=== PATIENT | male | born 1935 | race Caucasian/White ===

== ENCOUNTER 2018-03-18 16:02 | Emergency (ER) | payer OTHER ==
[~2018-03-18] VITALS: Ht 180.3 cm; Wt 93.0 kg
== END 2018-03-18 17:27 | disposition home or self-care (01) ==
LOC: ER 16:02
DX: S00.03XA Contusion of scalp, initial encounter (principal); W01.0XXA Fall on same level from slipping, tripping and stumbling without subsequent striking against object, initial encounter; Z87.891 Personal history of nicotine dependence
CPT/HCPCS: 70450; 72125; 90471; 90714; 99284-25

== ENCOUNTER 2024-08-18 17:28 | Emergency (ER) | payer MEDICARE ==
[~2024-08-18] VITALS: Ht 177.8 cm; Wt 87.5 kg
[2024-08-18] MEDS ORDERED: Morphine Sulfate 4 MG/1 ML Injection IV ONE ×2 (20:40→21:15)
[2024-08-18 20:49] LABS: BASOPHILS ABSOLUTE AUTO 0.07 K/mm3 (0.00-0.23); BASOPHILS PERCENT AUTO 1 % (0-2); EOSINOPHILS ABSOLUTE AUTO 0.21 K/mm3 (0.00-0.68); EOSINOPHILS PERCENT AUTO 2 % (0-6); Hematocrit 39.4 % (37.0-53.0); Hemoglobin 12.8 g/dL (13.5-17.5); IMMATURE GRAN ABSOLUTE AUTO 0.06 K/mm3 (0.00-0.10); IMMATURE GRAN PERCENT AUTO 1 % (0-1); LYMPHOCYTES ABSOLUTE AUTO 1.18 K/mm3 (0.84-5.20); LYMPHOCYTES PERCENT AUTO 9 % (21-46); MONOCYTES ABSOLUTE AUTO 0.77 K/mm3 (0.16-1.47); MONOCYTES PERCENT AUTO 6 % (4-13); Mean Corpuscular HGB 29.1 pg (26.0-34.0); Mean Corpuscular HGB Conc 32.5 g/dL (31.5-36.5); Mean Corpuscular Volume 90 fL (80-100); NEUTROPHILS ABSOLUTE AUTO 10.68 K/mm3 (1.96-9.15); NEUTROPHILS PERCENT AUTO 82 % (41-73); Platelet Count 190 K/mm3 (150-400); RDW Coefficient Variation 12.7 % (11.7-14.2); RDW Standard Deviation 41.5 fL (35.1-46.3); White Blood Cell Count 12.97 K/mm3 (4.00-11.30)
[2024-08-18 20:58] LABS: International Normalized Ratio 1.13; Prothrombin Time Results 12.3 Sec (9.7-11.5)
[2024-08-18 21:07] LABS: Albumin, Blood 3.4 g/dL (3.4-5.0); Albumin/Globulin Ratio 0.9 (0.8-1.8); Bilirubin, Total 0.7 mg/dL (0.1-1.0); Bun/Creatinine Ratio 18.3 (12.0-20.0); Calcium, Blood 8.5 mg/dL (8.5-10.1); Creatinine, Blood 0.93 mg/dL (0.60-1.20); Globulin, Blood 3.7 g/dL (2.2-4.0); Potassium, Blood 4.2 mmol/L (3.5-5.5); Total Protein, Blood 7.1 g/dL (6.4-8.2)
[2024-08-18 23:00] VITALS: BP 168/77
[2024-08-19] MEDS ORDERED: Morphine Sulfate 4 MG/1 ML Injection IV ONE (00:05)
== END 2024-08-19 00:08 | disposition short-term general hospital (02) ==
LOC: ER 17:28
PROVIDERS: Student in an Organized Health Care Education/Training Program
DX: S72.032A Displaced midcervical fracture of left femur, initial encounter for closed fracture (principal); S82.002A Unspecified fracture of left patella, initial encounter for closed fracture; W18.30XA Fall on same level, unspecified, initial encounter; Z87.891 Personal history of nicotine dependence
CPT/HCPCS: 72170; 73552; 73562-LT; 80053; 85025; 85610; 85730; 96374; 96376; 99284-25; J2270

== ENCOUNTER 2024-11-08 17:25 | Inpatient (IN) | payer OTHER ==
[~2024-11-08] VITALS: Ht 175.3 cm; Wt 84.6 kg
[2024-11-08 17:55] LABS: BASOPHILS ABSOLUTE AUTO 0.14 K/mm3 (0.00-0.23); BASOPHILS PERCENT AUTO 1 % (0-2); EOSINOPHILS ABSOLUTE AUTO 1.55 K/mm3 (0.00-0.68); EOSINOPHILS PERCENT AUTO 7 % (0-6); Hematocrit 30.2 % (37.0-53.0); Hemoglobin 9.6 g/dL (13.5-17.5); IMMATURE GRAN ABSOLUTE AUTO 0.16 K/mm3 (0.00-0.10); IMMATURE GRAN PERCENT AUTO 1 % (0-1); LYMPHOCYTES ABSOLUTE AUTO 3.18 K/mm3 (0.84-5.20); LYMPHOCYTES PERCENT AUTO 15 % (21-46); MONOCYTES ABSOLUTE AUTO 1.64 K/mm3 (0.16-1.47); MONOCYTES PERCENT AUTO 8 % (4-13); Mean Corpuscular HGB Conc 31.8 g/dL (31.5-36.5); Mean Corpuscular Volume 81 fL (80-100); NEUTROPHILS ABSOLUTE AUTO 14.84 K/mm3 (1.96-9.15); NEUTROPHILS PERCENT AUTO 69 % (41-73); NRBC ABSOLUTE 0.00 K/mm3 (0.00-0.02); NRBC Auto 0.0 /100 WBC (0.0-0.2); Platelet Count 425 K/mm3 (150-400); RDW Coefficient Variation 14.0 % (11.7-14.2); RDW Standard Deviation 41.1 fL (35.1-46.3)
[2024-11-08 18:21] LABS: Alanine Aminotransfer (ALT/SGP 10.0 U/L (12-78); Albumin, Blood 2.8 g/dL (3.4-5.0); Albumin/Globulin Ratio 0.6 (0.8-1.8); Anion Gap 12.0 mmol/L (3-11); Aspartate Aminotrans (AST/SGOT 12.0 U/L (12-37); Bilirubin, Total 1.1 mg/dL (0.1-1.0); Blood Urea Nitrogen 31.0 mg/dL (8-24); CO2, Blood 22.0 mmol/L (21-32); Calcium, Blood 8.5 mg/dL (8.5-10.1); Chloride, Blood 105.0 mmol/L (98-108); Creatinine, Blood 1.75 mg/dL (0.60-1.20); Globulin, Blood 4.7 g/dL (2.2-4.0); Glucose, Blood 145.0 mg/dL (70-99); Potassium, Blood 4.7 mmol/L (3.5-5.5); Sodium, Blood 134.0 mmol/L (136-145); Total Protein, Blood 7.5 g/dL (6.4-8.2)
[2024-11-08] MEDS ORDERED: Piperacillin/Tazobactam Sod 3.375 GM in NS 100 ML IV ONE (20:00)
[2024-11-08] MEDS ORDERED: FentaNYL Citrate 50 MCG/ML 2 ML Injection IV PRN (20:40)
[2024-11-08] MEDS ORDERED: Ondansetron HCl 2 MG / ML 2ML Vial IV PRN (20:40)
[2024-11-08] MEDS ORDERED: NS 1,000 ML IV ONE (20:47)
[2024-11-08] MEDS ORDERED: NS 1,000 ML IV SCH (21:00)
[2024-11-08] MEDS ORDERED: IBUP600 PO (22:23)
[2024-11-08] MEDS ORDERED: MIRALAX17 GM PO (22:24)
[2024-11-08 22:48] VITALS: BP 124/59
--- NOTE | 2024-11-08 23:04 | NUR ---
2300- PT RESP. RATE IS 28-30 BPM. PT DENIES SOB. PT LS DIM IN BASES. NO CRACKLES HEARD. PROVIDER NADIRA CALLED AND ORDERED A REPEAT LATIC ACID AND VBG DRAW.
[2024-11-08 23:36] LABS: pH Blood Venous 7.37 (7.34-7.37)
[2024-11-09 00:02] VITALS: BP 97/85
[2024-11-09 04:25] VITALS: BP 119/66
[2024-11-09 04:52] LABS: BASOPHILS ABSOLUTE AUTO 0.10 K/mm3 (0.00-0.23); BASOPHILS PERCENT AUTO 1 % (0-2); EOSINOPHILS ABSOLUTE AUTO 1.62 K/mm3 (0.00-0.68); EOSINOPHILS PERCENT AUTO 9 % (0-6); Hematocrit 28.9 % (37.0-53.0); Hemoglobin 8.9 g/dL (13.5-17.5); IMMATURE GRAN ABSOLUTE AUTO 0.10 K/mm3 (0.00-0.10); IMMATURE GRAN PERCENT AUTO 1 % (0-1); LYMPHOCYTES ABSOLUTE AUTO 2.96 K/mm3 (0.84-5.20); LYMPHOCYTES PERCENT AUTO 16 % (21-46); MONOCYTES ABSOLUTE AUTO 1.56 K/mm3 (0.16-1.47); MONOCYTES PERCENT AUTO 9 % (4-13); Mean Corpuscular HGB Conc 30.8 g/dL (31.5-36.5); Mean Corpuscular Volume 83 fL (80-100); NEUTROPHILS ABSOLUTE AUTO 12.07 K/mm3 (1.96-9.15); NEUTROPHILS PERCENT AUTO 66 % (41-73); NRBC ABSOLUTE 0.00 K/mm3 (0.00-0.02); NRBC Auto 0.0 /100 WBC (0.0-0.2); Platelet Count 380 K/mm3 (150-400); RDW Coefficient Variation 14.1 % (11.7-14.2); RDW Standard Deviation 42.5 fL (35.1-46.3)
--- NOTE | 2024-11-09 05:02 | NUR ---
NOC SUMMARY- PT ARRIVED TO ROOM IN NO DISTRESS. PT HAS BEEN NPO. PT HAS DENIED ANY SIGNIFICANT PAIN. PT WAS FOUND TO HAVE RESP RATE 28-30. PROVIDER CALLED AND NADIRA ORDERED VBG AND LACTIC ACID. RESULTS UNREMARKABLE. PT DENIED SOB . PT STATES HE HAS CHRONIC BLE EDEMA. PT DENIES HX OF CHF. PT VOIDING AND AMBULATING c FWW. NO OTHER ISSUES NOTED. CALL LIGHT IN REACH AND BED ALARM ON FOR SAFETY.
[2024-11-09 05:04] LABS: Anion Gap 10.0 mmol/L (3-11); Blood Urea Nitrogen 33.0 mg/dL (8-24); CO2, Blood 23.0 mmol/L (21-32); Calcium, Blood 7.9 mg/dL (8.5-10.1); Chloride, Blood 107.0 mmol/L (98-108); Creatinine, Blood 1.53 mg/dL (0.60-1.20); Glucose, Blood 113.0 mg/dL (70-99); Magnesium, Blood 2.2 mg/dL (1.6-2.4); Potassium, Blood 4.3 mmol/L (3.5-5.5); Sodium, Blood 136.0 mmol/L (136-145)
[2024-11-09 07:28] VITALS: BP 107/55
[2024-11-09] MEDS ORDERED: Piperacillin/Tazobactam Sod 2.25 GM in NS 50 ML IV SCH (08:00)
[2024-11-09 11:57] VITALS: BP 113/49
[2024-11-09 14:53] VITALS: BP 107/49
--- NOTE | 2024-11-09 17:09 | NUR ---
SUMMARY PT AXO4. NPO UNTIL DR JAVIER ASSESSED PT - PT NOW ON CL DIET - TOLERATING WELL. PLAN TO REASSESS SURGICAL STATUS TUESDAY. PT HAVING LIQUID BROWN BM'S MULTIPLE TIMES THIS SHIFT. VOIDING WELL. AMBULATING WELL WITH SBA GB FWW. RECEIVING IV FLUIDS/ABX. HEARING AIDES AT BEDSIDE- PT VERY [place] W/O THEM. FAMILY AT BEDSIDE WITH RESIDENT VISITS AND DR JAVIER VISIT. BED ALARM ON. PT USING CALL LIGHT APPROPRIATELY. RESTING OFF AND ON. PT HAS DENIED NEED FOR PAIN MEDS - ABD PAIN PRONOUNCED WITH PALPATION BUT MINIMNAL W/O.
[2024-11-09 19:24] VITALS: BP 119/55
--- NOTE | 2024-11-09 20:34 | NUR ---
CALL TO PROVIDER PT REQUESTING PO PAIN MEDICATION. ORDERS OBTAINED.
--- NOTE | 2024-11-09 23:46 | NUR ---
RN TO ROOM TO ROUND; PT ASLEEP WITH EQUAL AND UNLABORED BREATHING. CALL LIGHT WITHIN REACH.
--- NOTE | 2024-11-10 02:48 | NUR ---
RN TO ROOM TO ROUND; PT SLEEPING WITH EQUAL AND UNLABORED BREATHING. CALL LIGHT WITHIN REACH.
--- NOTE | 2024-11-10 04:12 | NUR ---
SHIFT SUMMARY NO ACUTE CHANGES DURING SHIFT. PT HARD OF HEARING BUT IS ABLE TO COMMUNICATE NEEDS. PT AMBULATES TO RESTROOM WITH FWW AND GAIT BELT. PT WEARING ATTENDS FOR STOOL URGENCY.
[2024-11-10 04:18] VITALS: BP 116/57
[2024-11-10 05:27] LABS: BASOPHILS ABSOLUTE AUTO 0.12 K/mm3 (0.00-0.23); BASOPHILS PERCENT AUTO 1 % (0-2); EOSINOPHILS ABSOLUTE AUTO 1.81 K/mm3 (0.00-0.68); EOSINOPHILS PERCENT AUTO 11 % (0-6); Hematocrit 27.9 % (37.0-53.0); Hemoglobin 8.4 g/dL (13.5-17.5); IMMATURE GRAN ABSOLUTE AUTO 0.15 K/mm3 (0.00-0.10); IMMATURE GRAN PERCENT AUTO 1 % (0-1); LYMPHOCYTES ABSOLUTE AUTO 2.52 K/mm3 (0.84-5.20); LYMPHOCYTES PERCENT AUTO 15 % (21-46); MONOCYTES ABSOLUTE AUTO 1.35 K/mm3 (0.16-1.47); MONOCYTES PERCENT AUTO 8 % (4-13); Mean Corpuscular HGB Conc 30.1 g/dL (31.5-36.5); Mean Corpuscular Volume 85 fL (80-100); NEUTROPHILS ABSOLUTE AUTO 10.96 K/mm3 (1.96-9.15); NEUTROPHILS PERCENT AUTO 65 % (41-73); NRBC ABSOLUTE 0.00 K/mm3 (0.00-0.02); NRBC Auto 0.0 /100 WBC (0.0-0.2); Platelet Count 361 K/mm3 (150-400); RDW Coefficient Variation 14.4 % (11.7-14.2); RDW Standard Deviation 44.5 fL (35.1-46.3)
[2024-11-10 05:49] LABS: Anion Gap 9.0 mmol/L (3-11); Blood Urea Nitrogen 21.0 mg/dL (8-24); CO2, Blood 22.0 mmol/L (21-32); Calcium, Blood 7.8 mg/dL (8.5-10.1); Chloride, Blood 112.0 mmol/L (98-108); Creatinine, Blood 1.16 mg/dL (0.60-1.20); Glucose, Blood 89.0 mg/dL (70-99); Potassium, Blood 4.2 mmol/L (3.5-5.5); Sodium, Blood 139.0 mmol/L (136-145)
[2024-11-10 07:34] VITALS: BP 119/56
[2024-11-10] MEDS ORDERED: Polyethylene Glycol 3350 17 gm PO SCH (09:00)
[2024-11-10] MEDS ORDERED: Piperacillin/Tazobactam Sod 3.375 GM in NS 100 ML IV SCH (12:00)
[2024-11-10 15:18] VITALS: BP 109/58
--- NOTE | 2024-11-10 17:30 | NUR ---
PATIENT IS ALERT AND ORIENTED AND COOPERATIVE WITH CARE. [place]. ON RA, CRACKLES HEARD IN LUNG BASES, DR. FERRO NOTIFIED. CT PE STUDY IS BEING DONE NOW. PATIENT STATES HIS ABD PAIN IS BETTER TODAY. TOLERATING A LIQUID DIET. FAMILY UPDATED AT THE BEDSIDE. LEFT SHOULDER PAIN MANAGED WITH TYLENOL AND HEATING PAD. USING THE URINAL AND WALKING TO THE BATHROOM WITH 1PA. JUANA HOSE ON BLE. NS AT 150/HR. NO NEW CONCERNS TODAY. WILL CONTINUE TO MONITOR
[2024-11-10 20:00] VITALS: BP 124/60
[2024-11-11 03:15] VITALS: BP 135/60
--- NOTE | 2024-11-11 04:17 | NUR ---
SHIFT SUMMARY NO ACUTE CHANGES DURING NOC SHIFT. PT HAD MULTIPLE TRIPS TO RESTROOM WITH BOWEL MOVEMENTS. PT WEARING ATTENDS IN CASE OF URGENCY BUT WAS FULLY CONTINENT OF THIS NOTE. PT WITH JUANA HOSE ON AND EDEMA HAS IMPROVED. PT HARD OF HEARING, HEARING AIDS AT BEDSIDE IN [place]. PT HAS FINE CRACKLES IN RIGHT LOWER LOBE BUT OTHERWISE CTA. PT TOLERATING FULL LIQUID DIET.
[2024-11-11 05:19] LABS: BASOPHILS ABSOLUTE AUTO 0.09 K/mm3 (0.00-0.23); BASOPHILS PERCENT AUTO 1 % (0-2); EOSINOPHILS ABSOLUTE AUTO 1.65 K/mm3 (0.00-0.68); EOSINOPHILS PERCENT AUTO 12 % (0-6); Hematocrit 28.0 % (37.0-53.0); Hemoglobin 8.4 g/dL (13.5-17.5); IMMATURE GRAN ABSOLUTE AUTO 0.08 K/mm3 (0.00-0.10); IMMATURE GRAN PERCENT AUTO 1 % (0-1); LYMPHOCYTES ABSOLUTE AUTO 2.25 K/mm3 (0.84-5.20); LYMPHOCYTES PERCENT AUTO 17 % (21-46); MONOCYTES ABSOLUTE AUTO 0.98 K/mm3 (0.16-1.47); MONOCYTES PERCENT AUTO 7 % (4-13); Mean Corpuscular HGB Conc 30.0 g/dL (31.5-36.5); Mean Corpuscular Volume 84 fL (80-100); NEUTROPHILS ABSOLUTE AUTO 8.41 K/mm3 (1.96-9.15); NEUTROPHILS PERCENT AUTO 62 % (41-73); NRBC ABSOLUTE 0.00 K/mm3 (0.00-0.02); NRBC Auto 0.0 /100 WBC (0.0-0.2); Platelet Count 370 K/mm3 (150-400); RDW Coefficient Variation 14.3 % (11.7-14.2); RDW Standard Deviation 43.8 fL (35.1-46.3)
[2024-11-11 05:44] LABS: Anion Gap 9.0 mmol/L (3-11); Blood Urea Nitrogen 13.0 mg/dL (8-24); CO2, Blood 22.0 mmol/L (21-32); Calcium, Blood 7.6 mg/dL (8.5-10.1); Chloride, Blood 115.0 mmol/L (98-108); Creatinine, Blood 0.89 mg/dL (0.60-1.20); Glucose, Blood 81.0 mg/dL (70-99); Potassium, Blood 4.2 mmol/L (3.5-5.5); Sodium, Blood 142.0 mmol/L (136-145)
[2024-11-11 07:18] VITALS: BP 134/83
[2024-11-11 15:34] VITALS: BP 120/64
--- NOTE | 2024-11-11 17:51 | NUR ---
SHIFT SUMMARY PATIENT IS AOX4, [place]. SBA WITH FWW TO BATHROOM AND CHAIR. IV ABX T/O SHIFT. DENIES ABD PAIN. BOWEL TONES NOTED. NO BM TODAY, REPORTS PASSING FLATUS. FAMILY IN T/O THE DAY, DR FAIRCHILD FAMILY ABOUT CA SPREAD. FAMILY AGREEABLE TO PALLIATIVE CARE CONSULT. REQUESTING ONOCOLOGY WELL. DR. FERRO TO TALK MORE WITH FAMILY. VSS, PATIENT IS ABLE TO MAKE NEEDS KNOWN.
[2024-11-11 19:41] VITALS: BP 130/61
[2024-11-11] MEDS ORDERED: Lactobacil 2-S.Thermo-Bifido 1 1 Cap PO SCH (21:00)
[2024-11-12 03:46] VITALS: BP 138/68
--- NOTE | 2024-11-12 03:57 | NUR ---
SHIFT SUMMARY NO ACUTE EVENTS OVERNIGHT. PT WITH MULTIPLE BOWEL MOVEMENTS DURING SHIFT THAT ARE LOOSE IN CONSISTENCY. PT WITH ATTENDS ON FOR STOOL URGENCY. IV FLUIDS INFUSING PER MAY. PT ON ROOM AIR AND USES FWW WITH GAIT BELT TO AMBULATE TO RESTROOM. [facility]; [facility]. PT DAUGHTER IN LAW (YULISA, NUMBER ON WHITE BOARD) WOULD LIKE TO BE PRESENT FOR PALLIATIVE CARE CONSULT.
[2024-11-12 04:21] LABS: BASOPHILS ABSOLUTE AUTO 0.14 K/mm3 (0.00-0.23); BASOPHILS PERCENT AUTO 1 % (0-2); EOSINOPHILS ABSOLUTE AUTO 1.66 K/mm3 (0.00-0.68); EOSINOPHILS PERCENT AUTO 11 % (0-6); Hematocrit 28.1 % (37.0-53.0); Hemoglobin 8.5 g/dL (13.5-17.5); IMMATURE GRAN ABSOLUTE AUTO 0.15 K/mm3 (0.00-0.10); IMMATURE GRAN PERCENT AUTO 1 % (0-1); LYMPHOCYTES ABSOLUTE AUTO 2.49 K/mm3 (0.84-5.20); LYMPHOCYTES PERCENT AUTO 17 % (21-46); MONOCYTES ABSOLUTE AUTO 1.05 K/mm3 (0.16-1.47); MONOCYTES PERCENT AUTO 7 % (4-13); Mean Corpuscular HGB Conc 30.2 g/dL (31.5-36.5); Mean Corpuscular Volume 85 fL (80-100); NEUTROPHILS ABSOLUTE AUTO 9.19 K/mm3 (1.96-9.15); NEUTROPHILS PERCENT AUTO 63 % (41-73); NRBC ABSOLUTE 0.00 K/mm3 (0.00-0.02); NRBC Auto 0.0 /100 WBC (0.0-0.2); Platelet Count 378 K/mm3 (150-400); RDW Coefficient Variation 14.5 % (11.7-14.2); RDW Standard Deviation 44.5 fL (35.1-46.3)
[2024-11-12 04:37] LABS: Anion Gap 10.0 mmol/L (3-11); Blood Urea Nitrogen 9.0 mg/dL (8-24); CO2, Blood 19.0 mmol/L (21-32); Calcium, Blood 7.5 mg/dL (8.5-10.1); Chloride, Blood 117.0 mmol/L (98-108); Creatinine, Blood 0.79 mg/dL (0.60-1.20); Glucose, Blood 72.0 mg/dL (70-99); Potassium, Blood 4.0 mmol/L (3.5-5.5); Sodium, Blood 142.0 mmol/L (136-145)
[2024-11-12 07:11] VITALS: BP 141/63
--- NOTE | 2024-11-12 14:03 | NUR ---
GOALS OF CARE PER PROVIDER REQUEST. SPOKE WITH DR. JENNIFER SHEN VIA PHONE THIS MORNING. DR. SHEN REPORTED PT IS APPROPRIATE FOR HOSPICE. PT IS A/O X3. ABLE TO MAKE HIS NEEDS KNOWN. HE IS FORGETFUL OF HIS LIMITATIONS AT TIMES. DIL, YULISA LONDONO ([phone]) REPORTS "HO'S" ORAL INTAKE HAS NOTABLY DECREASED IN THE LAST COUPLE OF MONTHS. SHE REPORTS PT HAD ONE SLICE OF PIZZA LAST Tuesday11/07/24 AND NO SOLID INTAKE SINCE. 2 BITES OF SOUP YESTERDAY 11/13/24. HE IS STILL DRINKING SOME WATER AND SUPPLEMENT SHAKES. REPORT OF WEIGHT LOSS, THOUGH SHE IS UNSURE OF THE AMOUNT. "HIS CLOTHES ARE MORE LOOSE-FITTING. WITH PT'S RECENT CANCER DX, PT AND FAMILY HAVE ELECTED TO D/C HOME WITH [facility]. CONTINUE WITH CURRENT TREATMENT PLAN UNTIL D/C HOME FAMILY WOULD LIKE ASSISTANCE WITH LIST OF CARE GIVERS AND WHERE TO START WITH SCREENING FOR ADL/IADL'S TO QUALIFY FOR IRONWORKER MACHINE OPERATOR ASSISTANCE THROUGH SERVICES. PT'S PCP IS [facility]. PROVIDER, PRIMARY RN, PRINTER HELPER AND CM UPDATED POST FAMILY CONVERSATION. PROVIDER TO PLACE NEW CODE STATUS ORDER (DNR) AND HOSPICE REFERRAL ORDER. PC TO REMAIN AVAILABLE NEEDED.
[2024-11-12 14:25] VITALS: BP 121/56
--- NOTE | 2024-11-12 17:32 | NUR ---
SHIFT SUMMARY NO ACUTE CHANGES T/O SHIFT. VSS STABLE. PT AMBULATED MULTIPLE TIMES T/O SHIFT. MULTIPLE LOOSE STOOLS, ATTENDS IN PLACE. [facility]/ [facility] AND GB. CODE STATUS WAS CHANGED FROM FULL CODE TO DNR TODAY. FAMILY WAS PRESENT DURING PALLIATIVE CARE CONSULT. PLAN IS TO D/C TO HOSPICE TOMORROW.
[2024-11-12 19:38] VITALS: BP 126/65
--- NOTE | 2024-11-13 03:56 | NUR ---
SHIFT SUMMARY NO ACUTE EVENTS OVERNIGHT. PT HARD OF HEARING AND HAS HEARING AIDS AT BEDSIDE. PT USES FWW TO RESTROOM AND HAS HAD LESS STOOLS THIS NOC SHIFT COMPARED TO THE LAST THAT THIS NURSE HAD WITH PT. PT ON ROOM AIR AND PLANS FOR D/C HOME ON HOSPICE TODAY.
[2024-11-13 04:57] VITALS: BP 167/81
[2024-11-13 05:58] LABS: BASOPHILS ABSOLUTE AUTO 0.16 K/mm3 (0.00-0.23); BASOPHILS PERCENT AUTO 1 % (0-2); EOSINOPHILS ABSOLUTE AUTO 1.79 K/mm3 (0.00-0.68); EOSINOPHILS PERCENT AUTO 11 % (0-6); Hematocrit 30.1 % (37.0-53.0); Hemoglobin 9.0 g/dL (13.5-17.5); IMMATURE GRAN ABSOLUTE AUTO 0.18 K/mm3 (0.00-0.10); IMMATURE GRAN PERCENT AUTO 1 % (0-1); LYMPHOCYTES ABSOLUTE AUTO 2.84 K/mm3 (0.84-5.20); LYMPHOCYTES PERCENT AUTO 17 % (21-46); MONOCYTES ABSOLUTE AUTO 1.21 K/mm3 (0.16-1.47); MONOCYTES PERCENT AUTO 7 % (4-13); Mean Corpuscular HGB Conc 29.9 g/dL (31.5-36.5); Mean Corpuscular Volume 83 fL (80-100); NEUTROPHILS ABSOLUTE AUTO 10.90 K/mm3 (1.96-9.15); NEUTROPHILS PERCENT AUTO 64 % (41-73); NRBC ABSOLUTE 0.00 K/mm3 (0.00-0.02); NRBC Auto 0.0 /100 WBC (0.0-0.2); Platelet Count 418 K/mm3 (150-400); RDW Coefficient Variation 14.4 % (11.7-14.2); RDW Standard Deviation 43.8 fL (35.1-46.3)
[2024-11-13 06:36] LABS: Alanine Aminotransfer (ALT/SGP 7.0 U/L (12-78); Albumin, Blood 2.3 g/dL (3.4-5.0); Albumin/Globulin Ratio 0.6 (0.8-1.8); Anion Gap 9.0 mmol/L (3-11); Aspartate Aminotrans (AST/SGOT 17.0 U/L (12-37); Bilirubin, Total 0.8 mg/dL (0.1-1.0); Blood Urea Nitrogen 6.0 mg/dL (8-24); CO2, Blood 22.0 mmol/L (21-32); Calcium, Blood 8.2 mg/dL (8.5-10.1); Chloride, Blood 113.0 mmol/L (98-108); Creatinine, Blood 0.78 mg/dL (0.60-1.20); Globulin, Blood 4.0 g/dL (2.2-4.0); Glucose, Blood 82.0 mg/dL (70-99); Potassium, Blood 3.5 mmol/L (3.5-5.5); Sodium, Blood 140.0 mmol/L (136-145); Total Protein, Blood 6.3 g/dL (6.4-8.2)
[2024-11-13 07:00] VITALS: BP 136/68
[2024-11-13 14:47] VITALS: BP 131/62
--- NOTE | 2024-11-13 14:58 | NUR ---
SUMMARY: NO ACUTE CHANGE TODAY, VSS, PT SLEPT WITH FAMILY AT BEDSIDE TODAY. OOB FOR USING BATHROOM. PLAN IS HOME ON HOSPICE TOMORROW. PT/FAMILY USE CALL LIGHT
[2024-11-13 19:21] VITALS: BP 119/60
[2024-11-14 03:41] VITALS: BP 133/63
--- NOTE | 2024-11-14 05:07 | NUR ---
SHIFT SUMMARY NOC. PT ADMIT FOR INTRA ABDOMINAL ABSCESS. PT A/O X4, AMBULATES WITH X1 ASSIST, FWW, GB. PT VOIDING URINE CONTINENT/INCONTINENT. PT HAD X2 BM THIS SHIFT. PT DENIES PAIN AND DECLINED NEED FOR MEDICATION WHEN OFFERED. PT TOLERATING FULL LIQUID DIET ORDERED. PT MAKES NEEDS KNOWN, CALL LIGHT IN REACH.
[2024-11-14 07:47] VITALS: BP 126/65
--- NOTE | 2024-11-14 11:01 | NUR ---
"Spiritual Care | Pt. Request At the request of our Eucharistic Volunteer this real estate closer visited the Pt. and family. The Pt. is awaiting discharge, and has requested an annointing from a fence erector supervisor. After attempts to reach Father Merritt were not successful, a call to the sabianism office was made."
[2024-11-14 11:23] LABS: CORONAVIRUS COVID-19 AG Negative (NEGATIVE)
--- NOTE | 2024-11-14 12:36 | NUR ---
report given to arlene oconnell [facility]. all questions answered.
--- NOTE | 2024-11-14 12:50 | NUR ---
PT LEFT WITH WHEELCHAIR TRANSPORT. ALL BELONGINGS WITH PATIENT AND FAMILY. ABLE TO STAND AND TRANSFER WELL WITH WALKER.
== END 2024-11-14 12:52 | disposition hospice, inpatient (51) | DRG 871 ==
LOC: ER 17:25 → SURS 20:37
PROVIDERS: Emergency Medicine; Internal Medicine; Nurse Practitioner Acute Care; ADMIT Internal Medicine
DX: A41.9 Sepsis, unspecified organism (principal); K65.1 Peritoneal abscess; N17.9 Acute kidney failure, unspecified; E87.1 Hypo-osmolality and hyponatremia; Z66 Do not resuscitate; Z51.5 Encounter for palliative care; C78.02 Secondary malignant neoplasm of left lung; C78.01 Secondary malignant neoplasm of right lung; C77.9 Secondary and unspecified malignant neoplasm of lymph node, unspecified; C79.72 Secondary malignant neoplasm of left adrenal gland; C79.71 Secondary malignant neoplasm of right adrenal gland; C79.82 Secondary malignant neoplasm of genital organs; C79.11 Secondary malignant neoplasm of bladder; K57.30 Diverticulosis of large intestine without perforation or abscess without bleeding; C80.1 Malignant (primary) neoplasm, unspecified; D64.9 Anemia, unspecified; K42.9 Umbilical hernia without obstruction or gangrene; R94.31 Abnormal electrocardiogram [ECG] [EKG]; Z96.642 Presence of left artificial hip joint
CPT/HCPCS: 36415; 70450; 71260; 73502; 74177; 80048; 80053; 82803; 83036; 83605; 83690; 83735; 83880; 85025; 87040; 87426-QW; 93005; 93010; 99285-25; A9270; C8929; J2543; J7030; Q9957; Q9967